=== PATIENT | male | born 1955 | race Caucasian/White ===

== ENCOUNTER → 2018-12-16 | Outpatient (CLI) | payer OTHER ==
[2018-12-16] VITALS (16 sets, daily range): BP systolic 115–155; BP diastolic 71–105
[~2018-12-16] MED LIST: ALTACE10 MG PO; CARDIZEM CD240 MG PO; CRESTOR10 MG PO; ELIQUIS5 MG PO; PRILOSEC OTC20 MG PO; PROPAFENONE 15150 MG PO; SORINE 80 MG TA80 MG PO
[2018-12-16 08:31] LABS: HEMATOCRIT 42.8 % (42.0-52.0); HEMOGLOBIN 15.1 gm/dL (14.0-18.0); MCH 32.1 pg (26.0-34.0); MCHC 35.2 g/dL (28.0-37.0); MCV 91.1 fL (80.0-100.0); MPV 8.8 fl. (7.2-11.1); RBC 4.7 mil/uL (4.50-6.00); RDW-CV 13.6 % (10.5-14.5); WBC 5.2 thou/uL (4.0-11.0)
[2018-12-16 08:38] LABS: CALCIUM 8.4 mg/dL (8.5-10.1); CREATININE 1.1 mg/dL (0.6-1.3); POTASSIUM 4.3 mmol/L (3.5-5.1)
[2018-12-16 08:41] LABS: APTT 27.7 Seconds (25.0-31.3)
[2018-12-16 08:42] LABS: ALBUMIN 3.5 g/dL (3.4-5.0); TOTAL BILIRUBIN 0.5 mg/dL (<0.1-1.0); TOTAL PROTEIN 6.8 g/dL (6.4-8.2)
--- NOTE | 2018-12-16 14:03 | EKG ---
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
--- NOTE | 2018-12-16 14:04 | EKG ---
[place] [address] ELECTROCARDIOGRAM REPORT Name: STACEY KELSEY Room: [facility]#: [id number] Admission: 12/16/18 Attend Phys: Gulshan Avila MD, Discharge: Date of : 53 Report #: [id number] THIS REPORT FOR: //name// 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
--- NOTE | 2018-12-17 10:43 | CARD ---
[facility] [address] [place] [address] CARDIAC CATH REPORT Name: LOWSTACEY Neelam Room: [facility]#: [id number] Admission: 12/16/18 Attend Phys: Gulshan Avila MD, Discharge: Date of : 53 Report #: [id number] THIS REPORT FOR: //name// CC: Gulshan Burrows DATE OF SERVICE: 12/16/2018 CATHETERIZATION REPORT PROCEDURE: DC cardioversion. TECHNIQUE: The patient had received loading with sotalol at 80 mg b.i.d., had been maintained on Eliquis oral anticoagulation 5 mg b.i.d. for greater than one month. He was brought to the cardiology suite and was sedated with 5 mg of Versed and 50 mcg of Fentanyl. After achieving adequate sedation, we proceeded with DC cardioversion with pads located in the AP location with 360 joules, delivered x 1. The patient reverted from atrial fibrillation with a moderate response to sinus rhythm at a rate of 74. He remained in sinus rhythm and we observed him until there was scientology of normal level of consciousness. He has satisfactory oxygen saturations throughout the procedure. He remained in sinus rhythm and was discharged in the same on sotalol and Eliquis. IMPRESSION: Successful DC cardioversion with rhythm reverting from atrial fibrillation to a sinus mechanism. <ELECTRONICALLY SIGNED> By: Gulshan Avila MD, [facility] 12/17/18 1043 1335 [id number] Avila MD, [facility]nt
== END | disposition home or self-care (01) ==
LOC: M.CL 07:48 → EDBD 09:00
PROVIDERS: Internal Medicine
DX: I48.91 Unspecified atrial fibrillation (principal); Z79.01 Long term (current) use of anticoagulants; Z79.899 Other long term (current) drug therapy; Z98.890 Other specified postprocedural states